=== PATIENT | male | born 1980 | race Caucasian/White ===

== ENCOUNTER 2018-08-17 16:09 | Inpatient (IN) | payer SELFPAY ==
[~2018-08-17] VITALS: Ht 182.9 cm; Wt 122.5 kg
[2018-08-17] MEDS ORDERED: CARAFATE1 G PO (16:16)
[2018-08-17] MEDS ORDERED: PEPCID AC20 MG PO (16:17)
[2018-08-17 16:56] LABS: HEMATOCRIT 40.6 % (42.0-54.0); HEMOGLOBIN 13.7 g/dL (13.5-17.5); MCH 26.7 pg (26.0-34.0); MCHC 33.7 g/dL (31.0-37.0); MCV 79.1 fL (80.0-100.0); MEAN PLATELET VOLUME 10.5 fL (7.4-10.4); PLATELET COUNT 375 10x3/uL (130-400); RBC 5.13 10x6/uL (4.20-6.10); RDW 14.4 % (11.5-14.5); WBC 19.6 10x3/uL (4.8-10.8)
[2018-08-17 17:18] LABS: ALBUMIN 2.8 g/dL (3.4-5.0); ALKALINE PHOSPHATASE 83 U/L (46-116); ALT (SGPT) 22 U/L (10-68); BILIRUBIN - TOTAL 0.63 mg/dL (0.2-1.3); CALC OSMOLALITY 270 mosm/kg (275-300); CALCIUM 9.2 mg/dL (8.5-10.1); CARBON DIOXIDE 25.2 mmol/L (21.0-32.0); CHLORIDE - SERUM 93 mmol/L (98-107); CREATININE - SERUM 0.8 mg/dL (0.6-1.3); GLUCOSE 287 mg/dL (74-106); POTASSIUM - SERUM 4.3 mmol/L (3.5-5.1); PROTEIN - SERUM 9.3 g/dL (6.4-8.2); SODIUM 130 mmol/L (136-145); UREA NITROGEN 12 mg/dL (7-18); eGFR NON AFRICAN AMERICAN > 90 mL/min (90-120)
[2018-08-17 17:20] LABS: AMYLASE - SERUM 11 U/L (25-115); LIPASE 92 U/L (73-393)
[2018-08-17 17:24] LABS: APPEARANCE CLEAR (CLEAR); BILIRUBIN NEGATIVE (NEGATIVE); COLOR DK YELLOW (YELLOW); GLUCOSE 500 mg/dL (NEGATIVE); KETONE LARGE mg/dL (NEGATIVE); NITRITE NEGATIVE (NEGATIVE); PROTEIN 2+ mg/dL (NEGATIVE); SPECIFIC GRAVITY 1.025 (1.005-1.020); UROBILINOGEN NORMAL (NORMAL)
[2018-08-17 17:26] LABS: TROPONIN-I < 0.017 ng/mL (0.000-0.060)
[2018-08-17 17:27] LABS: RED CELLS - URINE 0-5 /hpf (0-5); WHITE CELLS - URINE 0-5 /hpf (0-5)
[2018-08-17 17:28] LABS: BACTERIA MODERATE /hpf (NONE SEEN); MUCUS >1+ /lpf (NONE SEEN)
[2018-08-17 17:32] LABS: LYMPHOCYTES 18 % (15-50); MONOCYTES 5 % (2-11); NEUTROPHILS 77 % (40-80)
[2018-08-17 17:33] LABS: PLATELET ESTIMATE NORMAL
[2018-08-17 17:34] LABS: ROULEAUX OCC; TEAR DROP CELLS OCC
[2018-08-17 21:36] VITALS: BP 128/73
[2018-08-17 22:41] VITALS: BP 121/62; BMI 36.7
[2018-08-18 04:43] VITALS: BP 135/79
[2018-08-18 05:26] LABS: BASOPHILS 0.2 % (0-2); EOSINOPHILS 0.7 % (0-7); HEMATOCRIT 40.5 % (42.0-54.0); HEMOGLOBIN 12.9 g/dL (13.5-17.5); IMMATURE GRANULOCYTES 0.5 % (0-5); LYMPHOCYTES 10.7 % (15-50); MCH 25.9 pg (26.0-34.0); MCHC 31.9 g/dL (31.0-37.0); MCV 81.2 fL (80.0-100.0); MONOCYTES 12.2 % (2-11); NEUTROPHILS 75.7 % (40-80); PLATELET COUNT 396 10x3/uL (130-400); RBC 4.99 10x6/uL (4.20-6.10); RDW 14.8 % (11.5-14.5); WBC 20.1 10x3/uL (4.8-10.8)
[2018-08-18 05:33] LABS: ALBUMIN 2.6 g/dL (3.4-5.0); ALKALINE PHOSPHATASE 96 U/L (46-116); BILIRUBIN - TOTAL 0.69 mg/dL (0.2-1.3); CALC OSMOLALITY 275 mosm/kg (275-300); CALCIUM 8.9 mg/dL (8.5-10.1); CARBON DIOXIDE 25.5 mmol/L (21.0-32.0); CHLORIDE - SERUM 96 mmol/L (98-107); CREATININE - SERUM 0.9 mg/dL (0.6-1.3); GLUCOSE 267 mg/dL (74-106); POTASSIUM - SERUM 4.1 mmol/L (3.5-5.1); SODIUM 133 mmol/L (136-145); UREA NITROGEN 14 mg/dL (7-18); eGFR NON AFRICAN AMERICAN > 90 mL/min (90-120)
[2018-08-18 05:40] LABS: ALT (SGPT) 15 U/L (10-68)
[2018-08-18 08:47] VITALS: BP 127/75
[2018-08-18 10:49] VITALS: BMI 36.6
[2018-08-18 12:49] VITALS: BP 127/75
--- NOTE | 2018-08-18 14:43 | MORECARE ---
CASE MANAGEMENT DISCHARGE SUMMARY PATIENT: LAKHWINDER WAGGONER UNIT: [id number] ADM DATE: 08/17/18 AGE: 37 : [birth year] SEX: M ROOM/BED: D.2212 AUTHOR: PEPE,DOC PHYSICIAN: REFERRING PHYSICIAN: BRIAN PAEZ MD DATE OF SERVICE: 08/18/18 Discharge Plan Patient Name: LAKHWINDER WAGGONER Facility: [facility]:[place] : 1980 Planned Disposition: Home Anticipated Discharge Date: Discharge Date: Expected LOS: Initial Reviewer: [email or web address] Initial Review Date: 08/17/2018 Generated: 08/18/18 3:42 pm Comments DCP- Discharge Planning Updated by [email or web address]: Rashmi Borden on 08/18/18 1:[address] Patient Name: LAKHWINDER WAGGONER Admission Status: ER Accout number: [id number] Admission Date: 08-17-2018 : 1980 Admission Diagnosis: Attending: BRIAN PAEZ Current LOS: 1 Anticipated DC Date: Planned Disposition: Home Primary Insurance: UNINSURED DISCOUNT PLAN Discharge Planning Comments: CM met with patient to complete initial dc planning assessment. CM educated patient on the CM role and verbal consent given by patient to complete assessment. Patient lives at home with his family. At discharge patient plans to return home and feels this is a safe discharge. 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 CM discussed availability of home health, rehab services, and medical equipment. Patient denied known discharge needs at this time. CM will continue to follow and will assist as needed with dc plans/needs. General Repairer: Rashmi Borden DCPIA - Discharge Planning Initial Assessment Updated by [email or web address]: Rashmi Borden on 08/18/18 2:41 pm * Is the patient Alert and Oriented? Yes * How many steps to enter\exit or inside your home? * PCP none * [facility] * Preadmission Environment Home with Family * ADLs Independent * Equipment None * List name and contact numbers for known caregivers / representatives who currently or will assist patient after discharge: Tonya Holland [phone] * Verbal permission to speak to the caregivers and representatives has been obtained from the patient. N/A * Community resources currently utilized None * Additional services required to return to the preadmission environment? No * Can the patient safely return to the preadmission environment? Yes * Has this patient been hospitalized within the prior 30 days at any hospital? No Patient Name: LAKHWINDER WAGGONER Page [id number] at 1443 All edits/amendments must be made on the electronic document DICTATION DATE: 08/18/181441 [place] DRIVER: AUTUMN 08/18/181441 RPT#: [id number] DC DATE: STATUS: ADM IN [facility] [address] [place] [address] END OF REPORT
[2018-08-18 16:48] VITALS: BP 118/67
[2018-08-18 18:38] VITALS: Ht 182.9 cm; Wt 122.5 kg
[2018-08-18 21:03] VITALS: BP 125/72
[2018-08-19] VITALS (11 sets, daily range): BP systolic 111–138; BP diastolic 71–91
[2018-08-20 05:33] VITALS: BP 142/86
[2018-08-20 05:33] LABS: BASOPHILS 0.3 % (0-2); EOSINOPHILS 1.2 % (0-7); HEMATOCRIT 35.3 % (42.0-54.0); HEMOGLOBIN 11.4 g/dL (13.5-17.5); IMMATURE GRANULOCYTES 0.6 % (0-5); LYMPHOCYTES 14.5 % (15-50); MCHC 32.3 g/dL (31.0-37.0); MCV 80.4 fL (80.0-100.0); MEAN PLATELET VOLUME 10.5 fL (7.4-10.4); MONOCYTES 14.8 % (2-11); NEUTROPHILS 68.6 % (40-80); PLATELET COUNT 392 10x3/uL (130-400); RBC 4.39 10x6/uL (4.20-6.10); RDW 15.1 % (11.5-14.5); WBC 9.1 10x3/uL (4.8-10.8)
[2018-08-20 05:45] LABS: CALC OSMOLALITY 284 mosm/kg (275-300); CARBON DIOXIDE 27.5 mmol/L (21.0-32.0); CHLORIDE - SERUM 102 mmol/L (98-107); CREATININE - SERUM 0.7 mg/dL (0.6-1.3); GLUCOSE 265 mg/dL (74-106); POTASSIUM - SERUM 3.5 mmol/L (3.5-5.1); SODIUM 139 mmol/L (136-145); UREA NITROGEN 8 mg/dL (7-18); eGFR NON AFRICAN AMERICAN > 90 mL/min (90-120)
[2018-08-20 08:54] VITALS: BP 151/89
[2018-08-20 12:11] VITALS: BP 147/87
[2018-08-20 16:58] VITALS: BP 137/84
[2018-08-20 19:54] VITALS: BP 126/81
[2018-08-21 05:37] VITALS: BP 130/80
[2018-08-21 09:57] VITALS: BP 136/83
[2018-08-21 12:47] VITALS: BP 145/83
[2018-08-21 18:14] VITALS: BP 131/80
[2018-08-21] MEDS ORDERED: AUGMENTIN 875-11 TAB PO (21:03)
[2018-08-21 21:18] VITALS: BP 152/86
--- NOTE | 2018-08-23 13:00 | MORECARE ---
CASE MANAGEMENT DISCHARGE SUMMARY PATIENT: LAKHWINDER WAGGONER UNIT: [id number] ADM DATE: 08/17/18 AGE: 38 : 76 SEX: M ROOM/BED: D.2212 AUTHOR: PEPE,DOC PHYSICIAN: REFERRING PHYSICIAN: BRIAN PAEZ MD DATE OF SERVICE: 08/23/18 Discharge Plan Patient Name: LAKHWINDER WAGGONER Facility: [facility]:[place] : 1980 Planned Disposition: Home Anticipated Discharge Date: Discharge Date: 08/21/2018 Expected LOS: 0 Initial Reviewer: [email or web address] Initial Review Date: 08/17/2018 Generated: 08/23/18 2:00 pm Comments DCP- Discharge Planning Updated by [email or web address]: Rashmi Borden on 08/18/18 1:[address] Patient Name: LAKHWINDER WAGGONER Admission Status: ER Accout number: [id number] Admission Date: 08-17-2018 : 1980 Admission Diagnosis: Attending: BRIAN PAEZ Current LOS: 1 Anticipated DC Date: Planned Disposition: Home Primary Insurance: UNINSURED DISCOUNT PLAN Discharge Planning Comments: CM met with patient to complete initial dc planning assessment. CM educated patient on the CM role and verbal consent given by patient to complete assessment. Patient lives at home with his family. At discharge patient plans to return home and feels this is a safe discharge. 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 CM discussed availability of home health, rehab services, and medical equipment. Patient denied known discharge needs at this time. CM will continue to follow and will assist as needed with dc plans/needs. Roller [place] Leaf: Rashmi Borden DCPIA - Discharge Planning Initial Assessment Updated by [email or web address]: Rashmi Borden on 08/18/18 2:41 pm * Is the patient Alert and Oriented? Yes * How many steps to enter\exit or inside your home? * PCP none * [facility] * Preadmission Environment Home with Family * ADLs Independent * Equipment None * List name and contact numbers for known caregivers / representatives who currently or will assist patient after discharge: Tonya Holland [phone] * Verbal permission to speak to the caregivers and representatives has been obtained from the patient. N/A * Community resources currently utilized None * Additional services required to return to the preadmission environment? No * Can the patient safely return to the preadmission environment? Yes * Has this patient been hospitalized within the prior 30 days at any hospital? No Last DP export: 08/18/18 1:42 p Patient Name: LAKHWINDER WAGGONER Page [id number] at 1300 All edits/amendments must be made on the electronic document DICTATION DATE: 08/23/18 1300 ENVIRONMENTAL MANAGER: AUTUMN 08/23/18 1300 RPT#: [id number] DC DATE:08/21/18 STATUS: DIS IN [facility] [address] [place] [address] END OF REPORT
== END 2018-08-21 21:59 | disposition home or self-care (01) | DRG 374 ==
LOC: D.ER 16:09 → D.MS 20:29 → D.EDHOLD 20:29 → D.MS 20:30
PROVIDERS: Emergency Medicine; Family Medicine; Student in an Organized Health Care Education/Training Program; ADMIT Surgery; ATTEND Surgery
PROC: 0DB68ZX Excision of Stomach, Via Natural or Artificial Opening Endoscopic, Diagnostic (ICD-10-PCS; principal; 2018-08-19 07:30)
DX: D37.1 Neoplasm of uncertain behavior of stomach (principal); K65.1 Peritoneal abscess; K31.89 Other diseases of stomach and duodenum; R73.9 Hyperglycemia, unspecified; G47.00 Insomnia, unspecified

== ENCOUNTER → 2020-09-28 08:46 | Outpatient (CLI) | payer OTHER ==
[2018-08-18 18:38] VITALS: BMI 36.6
[~2020-09-28 08:46] MED LIST: AUGMENTIN 875-11 TAB PO; CARAFATE1 G PO; PEPCID AC20 MG PO
== END | disposition home or self-care (01) ==
LOC: D.US 08:46
PROVIDERS: ATTEND Internal Medicine Gastroenterology
DX: R11.2 Nausea with vomiting, unspecified (principal); R10.816 Epigastric abdominal tenderness; R63.4 Abnormal weight loss